=== PATIENT | male | born 1985 | race Hispanic/Latino ===

== ENCOUNTER → 2021-03-19 | Day surgery (SDC) | payer OTHER ==
[~2021-03-19] MED LIST: CEFAZOLIN SOD 1 GM/NS 50ML 50 ML IV ONE; DEXAMETHASONE SOD PHOS INJ 4 MG/ML VIAL ONE; FENTANYL CITRATE/PF 100MCG/2 ML INJ ONE; GLYCOPYRROLATE INJ 0.2 MG/ML VIAL ONE; HYDROMORPHONE 1MG/1ML INJ ONE; KETOROLAC TROMETHAMINE 30 MG/ML VIAL ONE; LIDOCAINE HCL 2% LOCAL INJ 5 ML SDV VIAL INJ ONE; MEPERIDINE HCL INJ 25 MG/ML VIAL ONE; MIDAZOLAM HCL 2 MG/2 ML VIAL ONE; ONDANSETRON HCL 4 MG ORAL DISINTEGRATING TAB ONE; ONDANSETRON HCL INJ 2MG/ML 2ML 2 MG/ML VIAL ONE; POVIDONE IODINE 0.05% 0.05 % ML PO ONE; PROPOFOL IV EMULSION 10 MG/ML 20 ML VIAL ONE; ROPIVACAINE 0.5% 5 MG/ML 30 ML SDV ONE; SEVOFLURANE INHAL SOLN 250 ML PEN BTL ONE
[2021-03-19 10:45] VITALS: BP 114/76
== END | disposition home or self-care (01) ==
LOC: OR 05:49
PROVIDERS: ATTEND Specialist
DX: S83.511A Sprain of anterior cruciate ligament of right knee, initial encounter (principal); S83.241A Other tear of medial meniscus, current injury, right knee, initial encounter; S83.281A Other tear of lateral meniscus, current injury, right knee, initial encounter; M94.261 Chondromalacia, right knee; X50.1XXA Overexertion from prolonged static or awkward postures, initial encounter; Y93.89 Activity, other specified; Y92.39 Other specified sports and athletic area as the place of occurrence of the external cause; Y99.8 Other external cause status; Z01.812 Encounter for preprocedural laboratory examination; Z20.822 Contact with and (suspected) exposure to COVID-19; Z68.32 Body mass index [BMI] 32.0-32.9, adult
CPT/HCPCS: 29879; 29882; 29888; C1713 ×3; C1893; J0690; J1100; J1170; J1885; J2001; J2175; J2250; J2405; J2704; J2795; J3010; Q0162; U0002

== ENCOUNTER 2021-04-23 13:00 | Outpatient (RCR) | payer OTHER | END 2021-04-24 | LOC: PT 13:00 | PROVIDERS: ATTEND Physician Assistant | DX: Z47.89 Encounter for other orthopedic aftercare (principal); S83.511D Sprain of anterior cruciate ligament of right knee, subsequent encounter ==

== ENCOUNTER 2021-05-23 13:00 | Outpatient (RCR) | payer OTHER | END 2021-05-25 | LOC: PT 13:00 | PROVIDERS: ATTEND Physician Assistant | DX: Z47.89 Encounter for other orthopedic aftercare (principal); S83.511D Sprain of anterior cruciate ligament of right knee, subsequent encounter | CPT/HCPCS: 97139 ==